=== PATIENT | male | born 1990 | race Caucasian/White ===

== ENCOUNTER 2022-10-15 17:40 | Emergency (ER) | payer OTHER, MEDICARE ==
[2022-10-15 18:10] LABS: BASO # 0.02 K/mm3 (0.02-0.10); EOS # 0.01 K/mm3 (0.04-0.40); EOS % 0.1 % (0.0-4.0); HEMATOCRIT 44.9 % (42.0-52.0); LYMPH# 0.89 K/mm3 (1.50-4.00); MEAN CELL VOLUME 88 fl (78-100); MEAN CORPUSCULAR HEMOGLOBIN 29 pg (27-31); MEAN CORPUSCULAR HGB CONC 33 g/dL (33-37); MEAN PLATELET VOLUME 9.9 fl (7.4-10.4); MONO # 1.45 K/mm3 (0.20-0.80); NEU # 16.85 K/mm3 (1.40-6.50); PLATELET COUNT 244 K/mm3 (130-400); WHITE BLOOD COUNT 19.3 K/mm3 (4.8-10.8)
[2022-10-15 18:26] LABS: ALBUMIN 5.1 g/dL (3.5-5.0); POTASSIUM 4.3 mmol/L (3.5-5.1); SODIUM 142 mmol/L (136-145)
[2022-10-15 18:28] LABS: CALCIUM 10.4 mg/dL (8.3-10.5)
[2022-10-15 18:29] LABS: GLUCOSE 100 mg/dL (75-110); TOTAL PROTEIN 7.6 g/dL (6.4-8.3)
[2022-10-15 18:30] LABS: CARBON DIOXIDE 24 mmol/L (22-29)
[2022-10-15 18:34] LABS: AST-SGOT 23 U/L (5-34)
[2022-10-15 18:35] LABS: ALCOHOL IN-HOUSE < 10 mg/dL (<10)
[2022-10-15 18:36] LABS: ALT/SGPT 16 U/L (0-55)
[2022-10-15 18:38] LABS: ACETAMINOPHEN < 1 ug/mL
[2022-10-16 02:03] LABS: URINE WBC 0 /hpf (0-3)
[2022-10-16 02:09] LABS: PH-URINE 6.5 (5.0 - 8.0); URINE APPEARANCE CLEAR; URINE BILIRUBIN NEGATIVE (NEGATIVE); URINE BLOOD NEGATIVE (NEGATIVE); URINE COLOR YELLOW; URINE GLUCOSE NEGATIVE (NEGATIVE); URINE KETONE NEGATIVE (NEGATIVE); URINE LEUKOCYTE ESTERASE NEGATIVE (NEGATIVE); URINE NITRATE NEGATIVE (NEGATIVE); URINE PROTEIN(semi-quant) TRACE (NEGATIVE); URINE UROBILINOGEN NORMAL (NORMAL)
[2022-10-16 06:57] VITALS: BP 120/80
== END 2022-10-16 07:41 | disposition home or self-care (01) ==
LOC: ED 17:40 → EDBD 19:35 → ED 10-16 07:41
PROVIDERS: Family Medicine
DX: S01.312A Laceration without foreign body of left ear, initial encounter (principal); S01.311A Laceration without foreign body of right ear, initial encounter; R45.851 Suicidal ideations; R45.850 Homicidal ideations; Z28.310 Unvaccinated for COVID-19; X58.XXXA Exposure to other specified factors, initial encounter; Y92.009 Unspecified place in unspecified non-institutional (private) residence as the place of occurrence of the external cause
CPT/HCPCS: 90715